=== PATIENT | female | born 1950 | race Caucasian/White ===

== ENCOUNTER 2022-01-23 16:57 | Inpatient (IN) ==
[2022-01-23] MEDS ORDERED: diphenhydrAMINE 50 MG/ML VIAL IV STA (17:15)
[2022-01-23] MEDS ORDERED: methylPREDNISolone 125 MG/2 ML VIAL IV STA (17:15)
[2022-01-23] MEDS ORDERED: diphenhydrAMINE 50 MG/ML VIAL ONE (17:16)
[2022-01-23] MEDS ORDERED: methylPREDNISolone 125 MG/2 ML VIAL ONE (17:17)
[2022-01-23 17:27] LABS: iSTAT Creatinine 0.7 mg/dl (0.6-1.3); iSTAT Hemoglobin 14.3 g/dl (12.0-16.0); iSTAT Ionized Calcium 1.12 mmol/l (1.12-1.32); iSTAT Potassium 3.8 mmol/L (3.3-5.0)
--- NOTE | 2022-01-23 17:29 | Emergency Department Note ---
History of Present Illness General Chief complaint: Stroke/CVA Symptoms Stated complaint: STROKE SYMPTOMS Time Seen by Provider: 01/23/22 17:08 History of Present Illness Provider complaint: Confusion weakness Onset (ago): minute(s) 45 71-year-old female presents emergency department with son for confusion and weakness. Son reports he received a call that the patient was acutely confused approximate 45 minutes prior to arrival to the emergency department. He states she was in a car and someone's are just sitting in a car confused having difficulty speaking. No trauma. Patient not on blood thinners. Son states that the patient does have a history of a brain tumor. Home Medications Medication Instructions Recorded Confirmed Type cholecalciferol (vitamin D3) 25 1,000 unit PO DAILY #90 cap 07/05/19 01/23/22 History mcg (1,000 unit) capsule metoprolol succinate 50 mg 50 mg PO DAILY tab 07/05/19 01/23/22 History tablet,extended release 24 hr alendronate 70 mg tablet 70 mg PO WK tab 12/13/20 01/23/22 History fluticasone furoate 100 1 inh INHALATION DAILY #60 ea 07/02/21 01/23/22 Rx mcg-vilanterol 25 mcg/dose inhalation powder (Breo Ellipta) losartan 25 mg tablet 25 mg PO DAILY 01/23/22 01/23/22 History lubiprostone 8 mcg capsule 8 mcg PO BID 01/23/22 01/23/22 History (Amitiza) Allergies Allergy/AdvReac Type Severity Reaction Status Date / Time iodine Allergy Intermediate HIVES Verified 07/02/21 10:54 Past Med/Surg History Medical History Abdominal pain Acute bronchitis with bronchospasm Cough variant asthma GERD (gastroesophageal reflux disease) Productive cough Seasonal allergies Surgical History History of colposcopy History of ERCP History of laparoscopy History of sinus surgery History of total abdominal hysterectomy Family History Father Brain cancer Mother Lung cancer Social History Smoking Status: Never smoker Feels Safe at Home: Yes Review of Systems A total of 10 systems reviewed and were otherwise negative Physical Exam Vital Signs Vital Signs - 24 hr 01/23/22 17:00 01/23/22 17:40 01/23/22 17:59 Pulse Rate 88 83 79 Pulse Rate from SpO2 Sensor 84 80 Respiratory Rate 20 22 21 Respiratory Effort / Characteristics Non-Labored Spontaneous Respiratory Depth Normal Blood Pressure 223/95 H 194/84 H Blood Pressure Mean 137 120 Pulse Oximetry 100 100 99 Oxygen Delivery Method Room Air Sepsis Recent Fever Within 48 Hours No Sepsis New/Unexplained Change in Mental Status N/A Sepsis Action Taken by Nursing No Action Required 01/23/22 18:00 01/23/22 18:10 Pulse Rate 76 Pulse Rate from SpO2 Sensor 76 Respiratory Rate 20 Respiratory Effort / Characteristics Respiratory Depth Blood Pressure 195/88 H Blood Pressure Mean 123 Pulse Oximetry 99 95 Oxygen Delivery Method Room Air Sepsis Recent Fever Within 48 Hours Sepsis New/Unexplained Change in Mental Status Sepsis Action Taken by Nursing Physical Exam HENT: Exam performed. -Head: Normocephalic and atraumatic. -Right Ear: External ear normal. No mastoid tenderness. -Left Ear: External ear normal. No mastoid tenderness. -Mouth/Throat: The oropharynx is clear and moist. No trismus in the jaw. No dental abscesses or uvula swelling. No oropharyngeal exudate or tonsillar ab scesses. EYES: Conjunctivae and EOM are normal. Pupils are equal, round, and reactive to light. Right eye exhibits no discharge. Left eye exhibits no discharge. No scleral icterus. NECK: Normal range of motion. Neck supple. No JVD present. No spinous process tenderness present. No carotid bruit present. No rigidity. No tracheal deviation and normal range of motion present. No Brudzinski's sign and no Kernig's sign noted. CV: Normal rate, regular rhythm, normal heart sounds and intact distal pulses. There is no peripheral edema. Palpable radial pulses bue. PULM/CHEST: Effort normal and breath sounds normal. No respiratory distress. No stridor. She has no wheezes. She has no rales. -Chest Wall: She exhibits no tenderness. ABD: The abdomen is soft. Bowel sounds are normal. She has no distension. No mass is present. There is no tenderness. There is no rebound, no guarding, no Henning's sign and no tenderness at McBurney's point. Rovsig negative MUSC/SKEL: Normal range of motion. There is no peripheral edema, tenderness or deformity. LYMPH: No cervical adenopathy. NEURO: NIHSS: 5 (1b:1, 7:2, 9:1, 10:1) Course Course 1708: The patient was evaluated in room B1. A complete history and physical exam was performed Cardiac monitoring: An order was placed for continuous cardiac monitoring. The monitor shows a rate of 90 with sinus rhythm Patient has a history of a brain tumor however the family says it is benign however they do not know what kind it is. Is unclear if the patient will truly be a stroke candidate for this given his history, however the patient's his family does not know what kind of tumor it is so a code stroke will be called. 1727: EMR reviewed. Patient has a history of hives to iodine. Solu-Medrol and Benadryl ordered for the patient prior to CT and CTA of the head and neck. Th ere is a scanned document from [facility] internal medicine. Patient has a history of meningioma and underwent a stereotactic cranial extradural navigation in 2018 at [facility] per the EMR. I did speak with [facility] telestroke Dr. Gooden stated that the patient having a meningioma and having this procedure done does not make her an absolute contraindication to TNKase. Patient at CT, Dr. Gooden states he will login to evaluate the patient. 1814: Vital signs stable. Patient evaluated by teleneurology Dr. Montaño. Still no read from radiology. Multiple calls were made to radiology by charge nurse. Dr. Gooden states he is unable to login and view the images. He has evaluated the patient and states that her symptoms are waxing and waning. He states that after further talking to the patient and the family the last known normal was 10 AM. He states with her history of meningioma he does think this is most likely due to seizure. He recommends no thrombolytics at this time and recommends Keppra 1 g IV piggyback as well as magnesium 2 g IV piggyback. He states that if the angios showing a large occlusion call him back and they can try to arrange for thrombectomy. Recommends patient be admitted to the hospital. 1829: CT reads are back.There is a hypodensity in the left temporal region and posterior watershed concerning for infarct. There is an enhancing mass in the left temporal fossa with dural tail compatible with meningioma. Discussed the case with Dr. Giacomo Renteria teleneurology again and he still recommends no TNKase no thrombectomy at this point. He states that it could be possible that the patient is suffering her symptoms from hypertensive encephalopathy recommends targeting a blood pressure of 180/90 maximum. Labetalol ordered for the patient. Aspirin ordered for the patient at Dr. Gooden suggestion. Administered Medications Magnesium Sulfate/Dextrose (Magnesium Sulfate / D5w) 1 gm in 100 mls @ 100 mls/hr IV Q1H SOFIA Stop: 01/23/22 20:11 Last Admin: 01/23/22 18:19 Dose: 100 mls/hr Documented by: [id number] Discontinued Medications Diphenhydramine HCl (Diphenhydramine 50 Mg/Ml Vial) 50 mg IV NOW STA Stop: 01/23/22 17:16 Last Admin: 01/23/22 17:19 Dose: 50 mg Documented by: [id number] Diphenhydramine HCl (Diphenhydramine 50 Mg/Ml Vial) Confirm Administered Dose 50 mg .ROUTE .STK-MED ONE Stop: 01/23/22 17:17 Last Admin: 01/23/22 17:37 Dose: Not Given Documented by: [id number] Ioversol (Optiray 320 125ml) 120 ml IV ONCE ONE Stop: 01/23/22 17:35 Last Admin: 01/23/22 17:34 Dose: 120 ml Documented by: [id number] Methylprednisolone (Methylprednisolone 125 Mg/2 Ml Vial) 125 mg IV NOW STA Stop: 01/23/22 17:16 Last Admin: 01/23/22 17:19 Dose: 125 mg Documented by: [id number] Methylprednisolone (Methylprednisolone 125 Mg/2 Ml Vial) Confirm Administered Dose 125 mg .ROUTE .STK-MED ONE Stop: 01/23/22 17:18 Last Admin: 01/23/22 17:37 Dose: Not Given Documented by: [id number] Critical Care Time Critical Care Time: Yes Total Critical Care Time: 55 I have personally spent greater than 55 minutes of critical care time in the direct management of this patient. This includes bedside care, interpretation of diagnostic studies, and testing, discussion with consultants, patient, and family members, and other required patient management activities. This 55 minutes is in excess of all separately billable procedures. Medical Decision Making Laboratory Data Result diagrams: 01/23/22 17:21 03/03/22 17:21 Lab Results 01/23/22 01/23/22 01/23/22 Range/Units 17:08 17:14 17:21 WBC (4.8-10.8) K/uL RBC (4.2-5.4) M/uL Hgb (12.0-16.0) g/dL POC Hgb 14.3 (12.0-16.0) g/dl Hct (37-47) % POC Hct 42 (37-47) % MCV (80-100) fL MCH (25-34) pg MCHC (32-36) g/dL RDW Std Deviation (36.4-46.3) fL RDW Coeff of Daniela (11.5-14.5) % Plt Count (130-400) K/uL MPV (7.4-10.4) fL Immature Gran % (Auto) % Neut % (Auto) % Lymph % (Auto) % [place] % (Auto) % Eos % (Auto) % Baso % (Auto) % Neut # (Auto) (1.4-6.5) K/uL Lymph # (Auto) (1.2-3.4) K/uL [place] # (Auto) (0.11-0.59) K/uL Eos # (Auto) (0-0.5) K/uL Baso # (Auto) (0-0.2) K/uL Immature Gran # (Auto) (0.00-0.02) K/uL PT (9.0-12.0) Seconds INR (0.9-1.1) APTT (21.0-31.0) Seconds PTT Ratio VBG pH (7.36-7.41) VBG pCO2 (38-50) mmHg VBG pO2 mmHg VBG HCO3 mmol/L VBG O2 Saturation % VBG Base Excess mEq/L Carboxyhemoglobin % THgb Barometric Pressure mm/Hg POC Sodium 140 (135-144) mmol/L Sodium (136-145) mmol/L POC Potassium 3.8 (3.3-5.0) mmol/L Potassium (3.5-5.1) mmol/L POC Chloride 102 (101-112) mmol/L Chloride (98-107) mmol/L Carbon Dioxide (21-32) mmol/L POC Total CO2 27 (24-31) mmol/L Anion Gap (3-11) POC Anion Gap 16.0 (16-25) mmol/L POC BUN 19 H (7-18) mg/dl BUN (6-23) mg/dl Creatinine (0.6-1.2) mg/dl POC Creatinine 0.7 (0.6-1.3) mg/dl Est Cr Clr Drug Dosing ml/min Est GFR ( Amer) ml/min Est GFR (Non-Af Amer) ml/min BUN/Creatinine Ratio (10-20) Glucose (70-99(Fasting)) mg/dl POC Glucose 127 H (70-99) mg/dl POC Glucose (other) 119 H (70-99) mg/dl Calcium (8.5-10.1) mg/dl POC Ioniz Calcium Rhiannon 1.12 (1.12-1.32) mmol/l Magnesium (1.7-2.4) mg/dl Total Bilirubin (0.2-1.0) mg/dl AST (13-39) U/L ALT (7-52) U/L Alkaline Phosphatase (34-104) U/L Troponin I (0-0.04) ng/ml Total Protein (6.0-8.3) gm/dl Albumin (3.4-5.0) gm/dl Globulin (2.5-4.0) gm/dl Albumin/Globulin Ratio (0.9-2) Blood Type O Negative Antibody Screen NEGATIVE 01/23/22 01/23/22 01/23/22 Range/Units 17:21 17:21 17:21 WBC 10.34 (4.8-10.8) K/uL RBC 4.64 (4.2-5.4) M/uL Hgb 14.7 (12.0-16.0) g/dL POC Hgb (12.0-16.0) g/dl Hct 42.1 (37-47) % POC Hct (37-47) % MCV 90.7 (80-100) fL MCH 31.7 (25-34) pg MCHC 34.9 (32-36) g/dL RDW Std Deviation 42.0 (36.4-46.3) fL RDW Coeff of Daniela 12.7 (11.5-14.5) % Plt Count 252 (130-400) K/uL MPV 9.3 (7.4-10.4) fL Immature Gran % (Auto) 0.2 % Neut % (Auto) 60.3 % Lymph % (Auto) 30.8 % [place] % (Auto) 6.2 % Eos % (Auto) 2.3 % Baso % (Auto) 0.2 % Neut # (Auto) 6.24 (1.4-6.5) K/uL Lymph # (Auto) 3.18 (1.2-3.4) K/uL [place] # (Auto) 0.64 H (0.11-0.59) K/uL Eos # (Auto) 0.24 (0-0.5) K/uL Baso # (Auto) 0.02 (0-0.2) K/uL Immature Gran # (Auto) 0.02 (0.00-0.02) K/uL PT 10.1 (9.0-12.0) Seconds INR 0.9 (0.9-1.1) APTT 25.1 (21.0-31.0) Seconds PTT Ratio 0.9 VBG pH (7.36-7.41) VBG pCO2 (38-50) mmHg VBG pO2 mmHg VBG HCO3 mmol/L VBG O2 Saturation % VBG Base Excess mEq/L Carboxyhemoglobin % THgb Barometric Pressure mm/Hg POC Sodium (135-144) mmol/L Sodium 137 (136-145) mmol/L POC Potassium (3.3-5.0) mmol/L Potassium 3.5 (3.5-5.1) mmol/L POC Chloride (101-112) mmol/L Chloride 103 (98-107) mmol/L Carbon Dioxide 26 (21-32) mmol/L POC Total CO2 (24-31) mmol/L Anion Gap 8 (3-11) POC Anion Gap (16-25) mmol/L POC BUN (7-18) mg/dl BUN 17 (6-23) mg/dl Creatinine 0.75 (0.6-1.2) mg/dl POC Creatinine (0.6-1.3) mg/dl Est Cr Clr Drug Dosing 69.1 ml/min Est GFR ( Amer) 91.7 ml/min Est GFR (Non-Af Amer) 79.1 ml/min BUN/Creatinine Ratio 22.7 H (10-20) Glucose 109 H (70-99(Fasting)) mg/dl POC Glucose (70-99) mg/dl POC Glucose (other) (70-99) mg/dl Calcium 9.4 (8.5-10.1) mg/dl POC Ioniz Calcium Rhiannon (1.12-1.32) mmol/l Magnesium 1.9 (1.7-2.4) mg/dl Total Bilirubin 0.6 (0.2-1.0) mg/dl AST 30 (13-39) U/L ALT 32 (7-52) U/L Alkaline Phosphatase 108 H (34-104) U/L Troponin I < 0.03 (0-0.04) ng/ml Total Protein 8.2 (6.0-8.3) gm/dl Albumin 4.5 (3.4-5.0) gm/dl Globulin 3.7 (2.5-4.0) gm/dl Albumin/Globulin Ratio 1.2 (0.9-2) Blood Type Antibody Screen 01/23/22 01/23/22 Range/Units 17:21 17:21 WBC (4.8-10.8) K/uL RBC (4.2-5.4) M/uL Hgb (12.0-16.0) g/dL POC Hgb (12.0-16.0) g/dl Hct (37-47) % POC Hct (37-47) % MCV (80-100) fL MCH (25-34) pg MCHC (32-36) g/dL RDW Std Deviation (36.4-46.3) fL RDW Coeff of Daniela (11.5-14.5) % Plt Count (130-400) K/uL MPV (7.4-10.4) fL Immature Gran % (Auto) % Neut % (Auto) % Lymph % (Auto) % [place] % (Auto) % Eos % (Auto) % Baso % (Auto) % Neut # (Auto) (1.4-6.5) K/uL Lymph # (Auto) (1.2-3.4) K/uL [place] # (Auto) (0.11-0.59) K/uL Eos # (Auto) (0-0.5) K/uL Baso # (Auto) (0-0.2) K/uL Immature Gran # (Auto) (0.00-0.02) K/uL PT (9.0-12.0) Seconds INR (0.9-1.1) APTT (21.0-31.0) Seconds PTT Ratio VBG pH 7.44 H (7.36-7.41) VBG pCO2 42 (38-50) mmHg VBG pO2 32 mmHg VBG HCO3 28 mmol/L VBG O2 Saturation 61.3 % VBG Base Excess 3.7 mEq/L Carboxyhemoglobin 0.0 % THgb Barometric Pressure 738.3 mm/Hg POC Sodium (135-144) mmol/L Sodium (136-145) mmol/L POC Potassium (3.3-5.0) mmol/L Potassium (3.5-5.1) mmol/L POC Chloride (101-112) mmol/L Chloride (98-107) mmol/L Carbon Dioxide (21-32) mmol/L POC Total CO2 (24-31) mmol/L Anion Gap (3-11) POC Anion Gap (16-25) mmol/L POC BUN (7-18) mg/dl BUN (6-23) mg/dl Creatinine (0.6-1.2) mg/dl POC Creatinine (0.6-1.3) mg/dl Est Cr Clr Drug Dosing ml/min Est GFR ( Amer) ml/min Est GFR (Non-Af Amer) ml/min BUN/Creatinine Ratio (10-20) Glucose (70-99(Fasting)) mg/dl POC Glucose (70-99) mg/dl POC Glucose (other) (70-99) mg/dl Calcium (8.5-10.1) mg/dl POC Ioniz Calcium Rhiannon (1.12-1.32) mmol/l Magnesium (1.7-2.4) mg/dl Total Bilirubin (0.2-1.0) mg/dl AST (13-39) U/L ALT (7-52) U/L Alkaline Phosphatase (34-104) U/L Troponin I (0-0.04) ng/ml Total Protein (6.0-8.3) gm/dl Albumin (3.4-5.0) gm/dl Globulin (2.5-4.0) gm/dl Albumin/Globulin Ratio (0.9-2) Blood Type Antibody Screen Imaging Data Radiologist's Impression: Chest X-Ray 01/23/22 17:12 XR chest 1V portable CLINICAL HISTORY: Stroke Like Symptoms TECHNIQUE: Single frontal radiograph of the chest was obtained. Comparison: None available at the time of this dictation. FINDINGS: No lines and tubes are seen. The cardiomediastinal silhouette is normal. The lungs are clear. No evidence of pleural effusion or pneumothorax. IMPRESSION: No acute chest disease. ACT 112: Negative or not required by law. Electronically signed by: Paulie Barnes M.D. 01/23/2022 5:[address] 01/23/22 17:12 CT angio neck with con, CT angio head w con, CT head/brain wo con CLINICAL HISTORY: Stroke Like Symptoms TECHNIQUE: Contiguous axial CT images of the head were acquired from the base of the skull to the vertex without intravenous contrast administration. CT angiography of the head and neck was performed following intravenous adm inistration of iodinated contrast. Coronal and sagittal MIPS were obtained from the axial data set and were submitted for review. Automated dose lowering techniques and/or adjustment according to patient size were utilized for this examination. All measurements were calculated based on NASCET criteria. Comparison: Comparison is made to CT head 07/21/2016 FINDINGS: CT head: There is an ill-defined hypodensity in the left sylvian sulcus. There also ill-defined hypodensities in the left posterior watershed region. Pe riventricular hypodensities are unchanged from 2016 and likely reflect age- related changes. Focal hypodensities are also seen in the right supraventricular white matter. Small thyroid nodules are seen which do not require follow-up by ACR criteria. CTA Neck: A 3 vessel aortic arch is shown. There is no significant atherosclerotic plaque in the aortic arch or the origins of the innominate, left common carotid, and left subclavian arteries. The common carotid, external carotid, cervical segments of the internal carotid arteries, and the cervical segments of the vertebral arteries are patent without hemodynamically significant stenosis. Tortuosity of the left internal carotid artery. The left vertebral artery is dominant. CTA Head: The anterior and posterior cerebral circulations are patent. No hemodynamically significant stenosis, aneurysm, dissection, or arteriovenous malformation is shown. 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 There is a 12 x 27 x 27 mm hyperdense mass in the right temporal fossa with dural tail noted IMPRESSION: 1. There is a hypodensity in the left temporal region and posterior watershed concerning for infarct. There is an enhancing mass in the left temporal fossa with dural tail compatible with meningioma. 2. No occlusion, hemodynamically significant stenosis, aneurysm, dissection, or arteriovenous malformation in the major intracranial arteries. 3. No occlusion, hemodynamically significant stenosis, or dissection in the major cervical arteries. Assessment of stenosis of the internal carotid arteries is based on NASCET criteria. ACT 112: Negative or not required by law. Electronically signed by: Paulie Barnes M.D. 01/23/2022 6:23 PM Head CTA 01/23/22 17:12 CT angio neck with con, CT angio head w con, CT head/brain wo con CLINICAL HISTORY: Stroke Like Symptoms TECHNIQUE: Contiguous axial CT images of the head were acquired from the base of the skull to the vertex without intravenous contrast administration. CT angiography of the head and neck was performed following intravenous administration of iodinated contrast. Coronal and sagittal MIPS were obtained from the axial data set and were submitted for review. Automated dose lowering techniques and/or adjustment according to patient size were utilized for this examination. All measurements were calculated based on NASCET criteria. Comparison: Comparison is made to CT head 07/21/2016 FINDINGS: CT head: There is an ill-defined hypodensity in the left sylvian sulcus. There also ill-defined hypodensities in the left posterior watershed region. Periventricular hypodensities are unchanged from 2016 and likely reflect age- related changes. Focal hypodensities are also seen in the right supraventricular white matter. Small thyroid nodules are seen which do not require follow-up by ACR criteria. CTA Neck: A 3 vessel aortic arch is shown. There is no significant atherosclerotic plaque in the aortic arch or the origins of the innominate, left common carotid, and left subclavian arteries. The common carotid, external carotid, cervical segments of the internal carotid arteries, and the cervical segments of the vertebral arteries are patent without hemodynamically signific ant stenosis. Tortuosity of the left internal carotid artery. The left vertebral artery is dominant. CTA Head: The anterior and posterior cerebral circulations are patent. No hemodynamically significant stenosis, aneurysm, dissection, or arteriovenous malformation is shown. 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 There is a 12 x 27 x 27 mm hyperdense mass in the right temporal fossa with dural tail noted IMPRESSION: 1. There is a hypodensity in the left temporal region and posterior watershed concerning for infarct. There is an enhancing mass in the left temporal fossa with dural tail compatible with meningioma. 2. No occlusion, hemodynamically significant stenosis, aneurysm, dissection, or arteriovenous malformation in the major intracranial arteries. 3. No occlusion, hemodynamically significant stenosis, or dissection in the major cervical arteries. Assessment of stenosis of the internal carotid arteries is based on NASCET criteria. ACT 112: Negative or not required by law. Electronically signed by: Paulie Barnes M.D. 01/23/2022 6:23 PM Neck CTA 01/23/22 17:12 CT angio neck with con, CT angio head w con, CT head/brain wo con CLINICAL HISTORY: Stroke Like Symptoms TECHNIQUE: Contiguous axial CT images of the head were acquired from the base of the skull to the vertex without intravenous contrast administration. CT angiography of the head and neck was performed following intravenous administration of iodinated contrast. Coronal and sagittal MIPS were obtained from the axial data set and were submitted for review. Automated dose lowering techniques and/or adjustment according to patient size were utilized for this examination. All measurements were calculated based on NASCET criteria. Comparison: Comparison is made to CT head 07/21/2016 FINDINGS: CT head: There is an ill-defined hypodensity in the left sylvian sulcus. There also ill-defined hypodensities in the left posterior watershed region. Periventricular hypodensities are unchanged from 2016 and likely reflect age- related changes. Focal hypodensities are also seen in the right supraventricular white matter. Small thyroid nodules are seen which do not require follow-up by ACR criteria. CTA Neck: A 3 vessel aortic arch is shown. There is no significant atherosclerotic plaque in the aortic arch or the origins of the innominate, left common carotid, and left subclavian arteries. The common carotid, external carotid, cervical segments of the internal carotid arteries, and the cervical segments of the vertebral arteries are patent without hemodynamically significant stenosis. Tortuosity of the left internal carotid artery. The left vertebral artery is dominant. CTA Head: The anterior and posterior cerebral circulations are patent. No hemodynamically significant stenosis, aneurysm, dissection, or arteriovenous mal formation is shown. 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 There is a 12 x 27 x 27 mm hyperdense mass in the right temporal fossa with dural tail noted IMPRESSION: 1. There is a hypodensity in the left temporal region and posterior watershed concerning for infarct. There is an enhancing mass in the left temporal fossa with dural tail compatible with meningioma. 2. No occlusion, hemodynamically significant stenosis, aneurysm, dissection, or arteriovenous malformation in the major intracranial arteries. 3. No occlusion, hemodynamically significant stenosis, or dissection in the major cervical arteries. Assessment of stenosis of the internal carotid arteries is based on NASCET criteria. ACT 112: Negative or not required by law. Electronically signed by: Paulie Barnes M.D. 01/23/2022 6:23 PM ECG Data Indication: + other (cva) Rate (beats per minute): 85 Rhythm: + normal sinus ECG Intervals/blocks: + Normal AL and + Normal QT-c ECG ST segments: + Normal ST segments ECG Findings: + LVH Additional Comments: QRS 76 MDM Narrative 1708: The patient was evaluated in room B1. A complete history and physical exam was performed Cardiac monitoring: An order was placed for continuous cardiac monitoring. The monitor shows a rate of 90 with sinus rhythm Patient has a history of a brain tumor however the family says it is benign however they do not know what kind it is. Is unclear if the patient will truly be a stroke candidate for this given his history, however the patient's his family does not know what kind of tumor it is so a code stroke will be called. 1727: EMR reviewed. Patient has a history of hives to iodine. Solu-Medrol and Benadryl ordered for the patient prior to CT and CTA of the head and neck. There is a scanned document from [facility] internal medicine. Patient has a history of meningioma and underwent a stereotactic cranial extradural navigation in 2018 at [facility] per the EMR. I did speak with [facility] telestroke Dr. Gooden stated that the patient having a meningioma and having this procedure done does not make her an absolute contraindication to TNKase. Patient at CT, Dr. Gooden states he will login to evaluate the patient. 1813: Vital signs stable. Patient evaluated by teleneurology Dr. Montaño. Still no read from radiology. Multiple calls were made to radiology by charge nurse. Dr. Gooden states he is unable to login and view the images. He has evaluated the patient and states that her symptoms are waxing and waning. He states that after further talking to the patient and the family the last known normal was 10 AM. He states with her history of meningioma he does think this is most likely due to seizure. He recommends no thrombolytics at this time and recommends Keppra 1 g IV piggyback as well as magnesium 2 g IV piggyback. He states that if the angios showing a large occlusion call him back and they can try to arrange for thrombectomy. Recommends patient be admitted to the hospital. 182: CT reads are back.There is a hypodensity in the left temporal region and posterior watershed concerning for infarct. There is an enhancing mass in the left temporal fossa with dural tail compatible with meningioma. Discussed the case with Dr. Giacomo Pinahey teleneurology again and he still recommends no TNKase no thrombectomy at this point. He states that it could be possible that the patient is suffering her symptoms from hypertensive encephalopathy recommends targeting a blood pressure of 180/90 maximum. Labetalol ordered for the patient. Aspirin ordered for the patient at Dr. Gooden suggestion. Impression & Plan Acute CVA (cerebrovascular accident), HTN (hypertension), Seizure Discharge Plan Visit Data Chief Complaint: Stroke/CVA Symptoms Stated Complaint: STROKE SYMPTOMS ED Provider: Asim Garay Discharge Problem: Acute CVA (cerebrovascular accident), HTN (hypertension), Seizure Patient Disposition: Admitted As Inpatient Forms Stand Alone Forms: [facility] Prescriptions Prescriptions: No Action cholecalciferol (vitamin D3) 1,000 unit capsule 1,000 unit PO DAILY Qty: 90 RF: 0 metoprolol succinate 50 mg tablet extended release 24 hr 50 mg PO DAILY RF: 0 alendronate 70 mg tablet 70 mg PO WK RF: 0 Breo Ellipta 100-25 mcg/dose blister with device 1 inh inhalation DAILY Qty: 60 RF: 5 losartan 25 mg tablet 25 mg PO DAILY RF: 0 lubiprostone [Amitiza] 8 mcg capsule 8 mcg PO BID RF: 0 Referrals Referrals: Omid De Oliveira, [Primary Care Provider] -
[2022-01-23 17:30] LABS: Basophils # (auto) 0.02 K/uL (0-0.2); Basophils % (auto) 0.2 %; Eosinophils # (auto) 0.24 K/uL (0-0.5); Eosinophils % (auto) 2.3 %; Hematocrit (blood only) 42.1 % (37-47); Hemoglobin 14.7 g/dL (12.0-16.0); Immature Granulocytes # (auto) 0.02 K/uL (0.00-0.02); Immature Granulocytes % (auto) 0.2 %; Lymphocytes # (auto) 3.18 K/uL (1.2-3.4); Lymphocytes % (auto) 30.8 %; Mean Corpuscular Hemoglobin 31.7 pg (25-34); Mean Corpuscular Hgb Conc 34.9 g/dL (32-36); Mean Corpuscular Volume 90.7 fL (80-100); Mean Platelet Volume 9.3 fL (7.4-10.4); Monocytes # (auto) 0.64 K/uL (0.11-0.59); Monocytes % (auto) 6.2 %; Neutrophils # (auto) 6.24 K/uL (1.4-6.5); Neutrophils % (auto) 60.3 %; Platelet Count 252 K/uL (130-400); RDW Coefficient of Variation 12.7 % (11.5-14.5); Red Blood Count 4.64 M/uL (4.2-5.4); White Blood Count 10.34 K/uL (4.8-10.8)
[2022-01-23 17:34] LABS: Base Excess VBG 3.7 mEq/L; Oxygen Saturation VBG 61.3 %; pH VBG 7.44 (7.36-7.41)
[2022-01-23] MEDS ORDERED: OPTIRAY 320 125ml IV ONE (17:34)
--- NOTE | 2022-01-23 17:41 | XRay Report ---
XR chest 1V portable CLINICAL HISTORY: Stroke Like Symptoms TECHNIQUE: Single frontal radiograph of the chest was obtained. Comparison: None available at the time of this dictation. FINDINGS: No lines and tubes are seen. The cardiomediastinal silhouette is normal. The lungs are clear. No evid ence of pleural effusion or pneumothorax. IMPRESSION: No acute chest disease. ACT 112: Negative or not required by law. Electronically signed by: Paulie Barnes M.D. 01/23/2022 5:39 PM
[2022-01-23 17:43] LABS: INR 0.9 (0.9-1.1); Partial Thromboplastin Ratio 0.9; Partial Thromboplastin Time 25.1 Seconds (21.0-31.0); Prothrombin Time 10.1 Seconds (9.0-12.0)
[2022-01-23 18:07] LABS: Troponin I < 0.03 ng/ml (0-0.04)
[2022-01-23 18:09] LABS: Alanine Aminotransferase 32 U/L (7-52); Albumin Globulin Ratio 1.2 (0.9-2); Albumin Level 4.5 gm/dl (3.4-5.0); Alkaline Phosphatase 108 U/L (34-104); Anion Gap 8 (3-11); Aspartate Aminotransferase 30 U/L (13-39); BUN Creatinine Ratio 22.7 (10-20); Bilirubin,Total 0.6 mg/dl (0.2-1.0); Blood Urea Nitrogen 17 mg/dl (6-23); Calcium 9.4 mg/dl (8.5-10.1); Carbon Dioxide 26 mmol/L (21-32); Chloride 103 mmol/L (98-107); Creatinine Clr Calc Pharmacy 69.1 ml/min; Est GFR (African American) 91.7 ml/min; Est GFR (Non-African American) 79.1 ml/min; Globulin 3.7 gm/dl (2.5-4.0); Glucose 109 mg/dl (70-99(Fasting)); Magnesium 1.9 mg/dl (1.7-2.4); Potassium 3.5 mmol/L (3.5-5.1); Sodium 137 mmol/L (136-145); Total Protein 8.2 gm/dl (6.0-8.3)
[2022-01-23] MEDS ORDERED: levETIRAcetam 1,000 MG in 0.9 % SODIUM CHLORIDE 100 ML IV STA (18:12)
[2022-01-23] MEDS: MAGNESIUM SULFATE / D5W 1 GM/100 ML BAG IV SCH ×2 (18:19→20:54)
--- NOTE | 2022-01-23 18:24 | CT Scan Report ---
CT angio neck with con, CT angio head w con, CT head/brain wo con CLINICAL HISTORY: Stroke Like Symptoms TECHNIQUE: Contiguous axial CT images of the head were acquired from the base of the skull to the sarina richard without intravenous contrast administration. CT angiography of the head and neck was performed f ollowing intravenous administration of iodinated contrast. Coronal and sagittal MIPS were obtained fr om the axial data set and were submitted for review. Automated dose lowering techniques and/or adjus tment according to patient size were utilized for this examination. All measurements were calculated based on NASCET criteria. Comparison: Comparison is made to CT head 07/21/2016 FINDINGS: CT head: There is an ill-defined hypodensity in the left sylvian sulcus. There also ill-defined hypod ensities in the left posterior watershed region. Periventricular hypodensities are unchanged from 201 6 and likely reflect age-related changes. Focal hypodensities are also seen in the right supraventric ular white matter. Small thyroid nodules are seen which do not require follow-up by ACR criteria. CTA Neck: A 3 vessel aortic arch is shown. There is no significant atherosclerotic plaque in the aor tic arch or the origins of the innominate, left common carotid, and left subclavian arteries. The c ommon carotid, external carotid, cervical segments of the internal carotid arteries, and the cervical segments of the vertebral arteries are patent without hemodynamically significant stenosis. Tortu[place] ty of the left internal carotid artery. The left vertebral artery is dominant. CTA Head: The anterior and posterior cerebral circulations are patent. No hemodynamically significan t stenosis, aneurysm, dissection, or arteriovenous malformation is shown. origin of the right P CA seen. There is a 12 x 27 x 27 mm hyperdense mass in the right temporal fossa with dural tail noted IMPRESSION: 1. There is a hypodensity in the left temporal region and posterior watershed concerning for infarct . There is an enhancing mass in the left temporal fossa with dural tail compatible with meningioma. 2. No occlusion, hemodynamically significant stenosis, aneurysm, dissection, or arteriovenous malfor mation in the major intracranial arteries. 3. No occlusion, hemodynamically significant stenosis, or dissection in the major cervical arteries. Assessment of stenosis of the internal carotid arteries is based on NASCET criteria. ACT 112: Negative or not required by law. Electronically signed by: Paulie Barnes M.D. 01/23/2022 6:23 PM
[2022-01-23] MEDS ORDERED: LABETALOL HCL IV 5 MG/ML 20ML IV STA (18:32)
[2022-01-23] MEDS ORDERED: ASPIRIN CHEW 324 MG PO STA (18:32)
[2022-01-23] MEDS ORDERED: SODIUM CHLORIDE 0.9% 1000ML 1,000 ML IV SCH (18:45)
[2022-01-23] MEDS ORDERED: LORazepam 2 MG/1 ML VIAL IV PRN (19:40)
--- NOTE | 2022-01-23 20:02 | History & Physical Report ---
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 Expressive aphasia Confusion Hypertensive emergency Admit to PCU Consult neurology Obtain MRI brain with and without contrast, to receive IV ativan prior to procedure CT concerning for L posterior watershed infarct Echocardiogram EEG Lipid panel, A1c PT/OT/ST Received 325 mg aspirin in ED Given aphasia remain n.p.o. until seen by speech Allow permissive hypertension r/o infectious cause with cultures, UA, obtain TSH, drug tox HTN pt on losartan and metoprolol as outpt given NPO status will hold for now, but resume in a.m. when cleared by speech Known L sphenoid wing Meningoma follows [facility] had repeat MRI on 09/16/21 was stable in size Asthma no exac continue breo DVT ppx: scds/teds, consider chemical ppx after further work up complete Dispo: PCU FULL CODE PCP: Alvino Pt was seen and examined in collaboration with Dr. Hidalgo, please see addendum History of Present Illness Chief Complaint: Confusion and difficulty speaking x3 days. Primary Care Provider: Omid De Oliveira, DO This is a 71-year-old female who has a significant past medical history of HTN, asthma, IBS, chronic sinusitis, left temporal meningioma followed by neurosurgery who presents to ED secondary to confusion and difficulty speaking x3 days. Patient's , father, and aunt are at bedside. Patient's history somewhat unreliable due to underlying confusion. She is unsure why she is here, but does she does know she is confused. Father at bedside notes that he noticed changes on Thursday. He felt she was more confused and, "babbling on and I did not understand what she was trying to tell me." Patient's saw her today at 4 PM and she was having difficulty speaking and confused. states she was talking to her aunt at 330 and appeared normal to her. A stroke alert was called on the patient. She otherwise had no other neurofocal deficits. She denies any extremity weakness, facial droop, slurred speech, drooling, foot drop, loss of bowel or bladder or seizure-like activity. She denies any recent illness. Today she did feel short of breath, but denies cough. She denies any recent fever, chills, sweats, lightheadedness, dizziness, syncope, chest pain, palpitations, nausea, vomiting, abdominal pain, change in her bowel or urinary habits. In ED patient was significantly hypertensive with systolic blood pressures in the 220s. She did receive IV labetalol 10 mg. Telemetry neurology was consulted and felt patient was not a TPA candidate due to possible concern for seizure versus stroke in area of meningioma as well as symptoms ongoing possibly for 3 days. There was concern for possible seizure so Tele neuro recommended 1g IV keprra. It is recommended she be admitted for further neurologic work-up. Allergies Allergy/AdvReac Type Severity Reaction Status Date / Time iodine Allergy Intermediate HIVES Verified 07/02/21 10:54 Home Medications Medication Instructions Recorded Confirmed Type cholecalciferol (vitamin D3) 25 1,000 unit PO DAILY #90 cap 07/05/19 01/23/22 History mcg (1,000 unit) capsule metoprolol succinate 50 mg 50 mg PO DAILY tab 07/05/19 01/23/22 History tablet,extended release 24 hr alendronate 70 mg tablet 70 mg PO WK tab 12/13/20 01/23/22 History fluticasone furoate 100 1 inh INHALATION DAILY #60 ea 07/02/21 01/23/22 Rx mcg-vilanterol 25 mcg/dose inhalation powder (Breo Ellipta) losartan 25 mg tablet 25 mg PO DAILY 01/23/22 01/23/22 History lubiprostone 8 mcg capsule 8 mcg PO BID 01/23/22 01/23/22 History (Amitiza) Past Med/Surg History Medical History Abdominal pain Acute bronchitis with bronchospasm Cough variant asthma GERD (gastroesophageal reflux disease) Productive cough Seasonal allergies Surgical History History of colposcopy History of ERCP History of laparoscopy History of sinus surgery History of total abdominal hysterectomy Family History Father Brain cancer Mother Lung cancer Social History (Updated 01/23/22 @ 19:46 by Yessenia Mccormick PA-C) Smoking Status: Never smoker Hx Alcohol Use: No Hx Substance Use: No Preferred Language: Kazakh Communication Ability: Impaired Communication Ability Comment: Prior to this admission no issues with communication Manager Crisis Required: No Beliefs That Will Affect Care: None marital status: Current Living Situation: Spouse Other Information That Helps Us Care for You: No Feels Safe at Home: Yes Review of Systems Review of Systems: All systems reviewed & are unremarkable except as noted in HPI & below Physical Exam Physical Exam: Constitutional: WD/WN, vitals as above, NAD, sitting up in bed, pleasant, conversing easily, alert to self and place, but not time Head: Normocephalic, Atraumatic Eyes: PERRL, conjunctivae normal, anicteric sclerae ENMT: external ear and nose normal, oropharynx normal Neck: trachea midline, no thyromegaly normal visual inspection Respiratory: normal respiratory effort, lungs clear to auscultation, no wheeze, rales, rhonchi. Normal insp/exp effort, no accessory muscle use Cardiovascular: RRR, no murmur, no edema Vessels: no JVD or carotid bruit Chest: normal inspection of chest Abdomen: normal bowel sounds, soft, nontender, no hepatosplenomegaly Musculoskeletal: no cyanosis or clubbing, extremities motor strength 5/5 Skin: no rashes, warm and dry normal turgor Neurologic: PERRL, EOMI, accommodation nl, no face palsy, no dysarthria, + expressive aphasia. CN's II-XI intact bilaterally and moves all extremities Psychiatric: A+Ox2, euthymic affect Lymphatic: no cervical or axillary lymphadenopathy : deferred Results & Data Results & Data ([facility]) Vital Signs (Past 12 Hours) Vital Signs Pulse Pulse Resp BP BP Pulse Ox 01/23/22 19:08 76 174/100 H 97 01/23/22 19:00 80 186/109 H 98 01/23/22 18:56 77 18 182/79 H 99 01/23/22 18:47 77 22 182/79 H 99 01/23/22 18:10 95 01/23/22 18:02 78 20 199/88 H 99 01/23/22 18:00 76 20 195/88 H 99 01/23/22 17:59 79 21 194/84 H 99 01/23/22 17:40 83 22 100 01/23/22 17:00 88 20 223/95 H 100 Diagnostic Findings Chest X-Ray 01/23/22 17:12 XR chest 1V portable CLINICAL HISTORY: Stroke Like Symptoms TECHNIQUE: Single frontal radiograph of the chest was obtained. Comparison: None available at the time of this dictation. FINDINGS: No lines and tubes are seen. The cardiomediastinal silhouette is normal. The lungs are clear. No evidence of pleural effusion or pneumothorax. IMPRESSION: No acute chest disease. ACT 112: Negative or not required by law. Electronically signed by: Paulie Barnes M.D. 01/23/2022 5:[address] 01/23/22 17:12 CT angio neck with con, CT angio head w con, CT head/brain wo con CLINICAL HISTORY: Stroke Like Symptoms TECHNIQUE: Contiguous axial CT images of the head were acquired from the base of the skull to the vertex without intravenous contrast administration. CT angiography of the head and neck was performed following intravenous administration of iodinated contrast. Coronal and sagittal MIPS were obtained from the axial data set and were submitted for review. Automated dose lowering techniques and/or adjustment according to patient size were utilized for this examination. All measurements were calculated based on NASCET criteria. Comparison: Comparison is made to CT head 07/21/2016 FINDINGS: CT head: There is an ill-defined hypodensity in the left sylvian sulcus. There also ill-defined hypodensities in the left posterior watershed region. Periventricular hypodensities are unchanged from 2016 and likely reflect age- related changes. Focal hypodensities are also seen in the right supraventricular white matter. Small thyroid nodules are seen which do not require follow-up by ACR criteria. CTA Neck: A 3 vessel aortic arch is shown. There is no significant atherosclerotic plaque in the aortic arch or the origins of the innominate, left common carotid, and left subclavian arteries. The common carotid, external carotid, cervical segments of the internal carotid arteries, and the cervical segments of the vertebral arteries are patent without hemodynamically significant stenosis. Tortuosity of the left internal carotid artery. The left vertebral artery is dominant. CTA Head: The anterior and posterior cerebral circulations are patent. No hemodynamically significant stenosis, aneurysm, dissection, or arteriovenous malformation is shown. origin of the right GAS STATION CASHIER seen. There is a 12 x 27 x 27 mm hyperdense mass in the right temporal fossa with dural tail noted IMPRESSION: 1. There is a hypodensity in the left temporal region and posterior watershed concerning for infarct. There is an enhancing mass in the left temporal fossa with dural tail compatible with meningioma. 2. No occlusion, hemodynamically significant stenosis, aneurysm, dissection, or arteriovenous malformation in the major intracranial arteries. 3. No occlusion, hemodynamically significant stenosis, or dissection in the major cervical arteries. Assessment of stenosis of the internal carotid arteries is based on NASCET criteria. ACT 112: Negative or not required by law. Electronically signed by: Paulie Barnes M.D. 01/23/2022 6:23 PM Head CTA 01/23/22 17:12 CT angio neck with con, CT angio head w con, CT head/brain wo con CLINICAL HISTORY: Stroke Like Symptoms TECHNIQUE: Contiguous axial CT images of the head were acquired from the base of the skull to the vertex without intravenous contrast administration. CT angiography of the head and neck was performed following intravenous administration of iodinated contrast. Coronal and sagittal MIPS were obtained f rom the axial data set and were submitted for review. Automated dose lowering techniques and/or adjustment according to patient size were utilized for this examination. All measurements were calculated based on NASCET criteria. Comparison: Comparison is made to CT head 07/21/2016 FINDINGS: CT head: There is an ill-defined hypodensity in the left sylvian sulcus. There also ill-defined hypodensities in the left posterior watershed region. Periventricular hypodensities are unchanged from 2016 and likely reflect age- related changes. Focal hypodensities are also seen in the right supraventricular white matter. Small thyroid nodules are seen which do not require follow-up by ACR criteria. CTA Neck: A 3 vessel aortic arch is shown. There is no significant atherosclerotic plaque in the aortic arch or the origins of the innominate, left common carotid, and left subclavian arteries. The common carotid, external carotid, cervical segments of the internal carotid arteries, and the cervical segments of the vertebral arteries are patent without hemodynamically significant stenosis. Tortuosity of the left internal carotid artery. The left vertebral artery is dominant. CTA Head: The anterior and posterior cerebral circulations are patent. No hemodynamically significant stenosis, aneurysm, dissection, or arteriovenous malformation is shown. origin of the right GAS STATION CASHIER seen. There is a 12 x 27 x 27 mm hyperdense mass in the right temporal fossa with dural tail noted IMPRESSION: 1. There is a hypodensity in the left temporal region and posterior watershed concerning for infarct. There is an enhancing mass in the left temporal fossa with dural tail compatible with meningioma. 2. No occlusion, hemodynamically significant stenosis, aneurysm, dissection, or arteriovenous malformation in the major intracranial arteries. 3. No occlusion, hemodynamically significant stenosis, or dissection in the major cervical arteries. Assessment of stenosis of the internal carotid arteries is based on NASCET criteria. ACT 112: Negative or not required by law. Electronically signed by: Paulie Barnes M.D. 01/23/2022 6:23 PM Neck CTA 01/23/22 17:12 CT angio neck with con, CT angio head w con, CT head/brain wo con CLINICAL HISTORY: Stroke Like Symptoms TECHNIQUE: Contiguous axial CT images of the head were acquired from the base of the skull to the vertex without intravenous contrast administration. CT angiography of the head and neck was performed following intravenous administration of iodinated contrast. Coronal and sagittal MIPS were obtained from the axial data set and were submitted for review. Automated dose lowering techniques and/or adjustment according to patient size were utilized for this examination. All measurements were calculated based on NASCET criteria. Comparison: Comparison is made to CT head 07/21/2016 FINDINGS: CT head: There is an ill-defined hypodensity in the left sylvian sulcus. There also ill-defined hypodensities in the left posterior watershed region. Periventricular hypodensities are unchanged from 2016 and likely reflect age- related changes. Focal hypodensities are also seen in the right supraventricular white matter. Small thyroid nodules are seen which do not require follow-up by ACR criteria. CTA Neck: A 3 vessel aortic arch is shown. There is no significant ather osclerotic plaque in the aortic arch or the origins of the innominate, left common carotid, and left subclavian arteries. The common carotid, external carotid, cervical segments of the internal carotid arteries, and the cervical segments of the vertebral arteries are patent without hemodynamically significant stenosis. Tortuosity of the left internal carotid artery. The left vertebral artery is dominant. CTA Head: The anterior and posterior cerebral circulations are patent. No hemodynamically significant stenosis, aneurysm, dissection, or arteriovenous malformation is shown. origin of the right GAS STATION CASHIER seen. There is a 12 x 27 x 27 mm hyperdense mass in the right temporal fossa with dural tail noted IMPRESSION: 1. There is a hypodensity in the left temporal region and posterior watershed concerning for infarct. There is an enhancing mass in the left temporal fossa with dural tail compatible with meningioma. 2. No occlusion, hemodynamically significant stenosis, aneurysm, dissection, or arteriovenous malformation in the major intracranial arteries. 3. No occlusion, hemodynamically significant stenosis, or dissection in the major cervical arteries. Assessment of stenosis of the internal carotid arteries is based on NASCET criteria. ACT 112: Negative or not required by law. Electronically signed by: Paulie Barnes M.D. 01/23/2022 6:23 PM Medications Administered Medication List Magnesium Sulfate/Dextrose (Magnesium Sulfate / D5w) 1 gm in 100 mls @ 100 mls/hr IV Q1H [facility] Stop: 01/23/22 20:11 Last Admin: 01/23/22 18:19 Dose: 100 mls/hr Documented by: [id number] Discontinued Medications Aspirin (Aspirin Chew 324 Mg) 324 mg PO NOW STA Stop: 01/23/22 18:33 Last Admin: 01/23/22 18:47 Dose: 324 mg Documented by: [id number] Diphenhydramine HCl (Diphenhydramine 50 Mg/Ml Vial) 50 mg IV NOW STA Stop: 01/23/22 17:16 Last Admin: 01/23/22 17:19 Dose: 50 mg Documented by: [id number] Diphenhydramine HCl (Diphenhydramine 50 Mg/Ml Vial) Confirm Administered Dose 50 mg .ROUTE .STK-MED ONE Stop: 01/23/22 17:17 Last Admin: 01/23/22 17:37 Dose: Not Given Documented by: [id number] Levetiracetam 1,000 mg/ Sodium (Chloride) 110 mls @ 440 mls/hr IV NOW STA Stop: 01/23/22 18:26 Last Infusion: 01/23/22 19:20 Dose: 0 mls/hr Documented by: [id number] Admin: 01/23/22 18:53 Dose: 440 mls/hr Documented by: [id number] Sodium Chloride (Nss 1000ml) 1,000 mls @ 80 mls/hr IV .[id number] Stop: 02/22/22 18:44 Last Admin: 01/23/22 19:25 Dose: 80 mls/hr Documented by: [id number] Ioversol (Optiray 320 125ml) 120 ml IV ONCE ONE Stop: 01/23/22 17:35 Last Admin: 01/23/22 17:34 Dose: 120 ml Documented by: [id number] Labetalol HCl (Labetalol Hcl Iv 5 Mg/Ml 20ml) 20 mg IV NOW STA Stop: 01/23/22 18:33 Last Admin: 01/23/22 18:47 Dose: 10 mg Documented by: [id number] Cosigned by: [id number] Methylprednisolone (Methylprednisolone 125 Mg/2 Ml Vial) 125 mg IV NOW STA Stop: 01/23/22 17:16 Last Admin: 01/23/22 17:19 Dose: 125 mg Documented by: [id number] Methylprednisolone (Methylprednisolone 125 Mg/2 Ml Vial) Confirm Administered Dose 125 mg .ROUTE .STK-MED ONE Stop: 01/23/22 17:18 Last Admin: 01/23/22 17:37 Dose: Not Given Documented by: [id number] ECG Rate (beats per minute): 85 Rhythm: normal sinus COVID-19 Results Results COVID-19 Adm Lab Results: RBC 4.52 M/uL (4.2-5.4) 01/24/22 WBC 12.95 K/uL (4.8-10.8) H 01/24/22 Hgb 14.3 g/dL (12.0-16.0) 01/24/22 Hct 41.0 % (37-47) 01/24/22 Plt Count 253 K/uL (130-400) 01/24/22 Neutrophils (%) (Auto) 90.6 % 01/24/22 Lymphocytes (%) (Auto) 8.3 % 01/24/22 Monocytes # (Auto) 0.10 K/uL (0.11-0.59) L 01/24/22 Eosinophils # (Auto) 0.00 K/uL (0-0.5) 01/24/22 Immature Granulocyte % (Auto) 0.3 % 01/24/22 Neutrophils # (Auto) 11.73 K/uL (1.4-6.5) H 01/24/22 Lymphocytes # (Auto) 1.08 K/uL (1.2-3.4) L 01/24/22 Monocytes # (Auto) 0.10 K/uL (0.11-0.59) L 01/24/22 Eosinophils # (Auto) 0.00 K/uL (0-0.5) 01/24/22 Basophils # (Auto) 0.00 K/uL (0-0.2) 01/24/22 Immature Granulocyte # (Auto) 0.04 K/uL (0.00-0.02) H 01/24/22 Na 138 mmol/L (136-145) 01/24/22 K 3.9 mmol/L (3.5-5.1) 01/24/22 Cl 105 mmol/L (98-107) 01/24/22 CO2 24 mmol/L (21-32) 01/24/22 Anion Gap 9 (3-11) 01/24/22 BUN 15 mg/dl (6-23) 01/24/22 Creatinine 0.68 mg/dl (0.6-1.2) 01/24/22 BUN/Creatinine Ratio 22.1 (10-20) H 01/24/22 Glucose Level 137 mg/dl (70-99(Fasting)) H 01/24/22 Ca 8.7 mg/dl (8.5-10.1) 01/24/22 Total Bilirubin 0.6 mg/dl (0.2-1.0) 01/23/22 AST/SGOT 30 U/L (13-39) 01/23/22 ALT/SGPT 32 U/L (7-52) 01/23/22 Alkaline Phosphatase 108 U/L (34-104) H 01/23/22 Total Protein 8.2 gm/dl (6.0-8.3) 01/23/22 Albumin 4.5 gm/dl (3.4-5.0) 01/23/22 Globulin 3.7 gm/dl (2.5-4.0) 01/23/22 Albumin/Globulin Ratio 1.2 (0.9-2) 01/23/22 Troponin I < 0.03 ng/ml (0-0.04) 01/23/22 PTT 25.1 Seconds (21.0-31.0) 01/23/22 INR 0.9 (0.9-1.1) 01/23/22 Triglycerides Level 61 mg/dl (0-150) 01/24/22 SARS-CoV-2, RNA, NAAT NEGATIVE (NEGATIVE) 01/23/22 Chest X-Ray 01/23/22 Code Status & VTE Plan Code Status FULL CODE VTE Prophylaxis Plan VTE Prophylaxis will be ordered: Yes Supervising Physician Co-Signing Physician Notes Care coordinated with Yessenia Mccormick PA-C. Agree with above note. Patient seen and examined. Please refer to her notes for full details. Vital signs reviewed. Physical exam: General exam: Having difficulty speaking. Not in acute distress. CVS: S1 and S2 heard, regular rate and rhythm, no murmurs. RS: Clear to auscultation, no wheezing or crackles. ABD: Soft, bowel sounds present, nontender, no distention. CONTACT LENS MANUFACTURER: alert and awake obeys simple commands expressive aphasia present power 4/5 in all extremities sensations intact no pronator drift co ordination of movements normal finger nose test normal position sense intact . EXT: No edema, no erythema. Labs: Reviewed. Assessment and plan: 71 Y F presents with expressive aphasia since 4pm yesterday. Father seems patient having symptoms of confusion and speech issues since Thursday. Tele stroke was consulted. Imaging studies show: There is a hypodensity in the left temporal region and posterior watershed concerning for infarct. There is an enhancing mass in the left temporal fossa with dural tail compatible with meningioma. Received aspirin in ER. To allow permissive HTN npo until seen by speech iv fluids will follow mri head echo follow lipid profile Monitor in tele Neurology consult HTN to hold metoprolol and losartan for permissive htn for now Other diagnosis and plan of care as per Yessenia Mccormick PA-C . Yonny shaver MD.
[2022-01-23 21:12] LABS: Appearance Urine Clear (Clear); Bacteria Urine Automated Negative (Negative); Bilirubin Urine Negative (Negative); Blood Urine Trace (Negative); Cast Urine Automated 0 /lpf (0-5); Color Urine Yellow; Epithelial Cell Urine Auto 0-5 /lpf (0-5); Glucose Urine UA Negative (Negative); Ketones Urine Negative (Negative); Leukocyte Esterase Urine Negative (Negative); Nitrite Urine Negative (Negative); Protein Urine Negative (Negative); RBC Urine Automated 0-4 /hpf (0-4); Specific Gravity Urine 1.023 (1.000-1.030); Urobilinogen Urine Negative (Negative); WBC Urine Automated 0 /hpf (0-5)
[2022-01-23] MEDS ORDERED: GADOBUTROL 65ML VIAL IV ONE (22:17)
[2022-01-23 22:23] LABS: Amphetamines+Metham, Urine Neg (Neg); Barbiturates, Urine Neg (Neg); Benzodiazepine, Urine Neg (Neg); Cocaine, Urine Neg (Neg); MDMA (Ecstacy), Urine Neg (Neg); Methadone, Urine Neg (Neg); Opiate, Urine Neg (Neg); Phencyclidine, Urine Neg (Neg)
[2022-01-23] MEDS ORDERED: LABETALOL HCL IV 5 MG/ML 20ML IV PRN (23:07)
[2022-01-23] MEDS ORDERED: PHARMACIST DISCHARGE MED REC CONSULT PRN (23:07)
[2022-01-23] MEDS ORDERED: INFLUENZA VACCINE HIGH DOSE PF 65+ 0.7 ML SYR IM ONE (23:23)
[2022-01-23] MEDS ORDERED: PNEUMOCOCCAL POLYSACCHARIDES 25 MCG/0.5 ML VIAL/SYR IM ONE (23:23)
[2022-01-24] MEDS ORDERED: SODIUM CHLORIDE 0.9% 500 ML IV SCH (04:15)
[2022-01-24] MEDS: SODIUM CHLORIDE 0.9% 1000ML 1,000 ML IV SCH ×2 (06:44→15:45)
[2022-01-24 06:53] LABS: Hemoglobin 14.3 g/dL (12.0-16.0); Immature Granulocytes # (auto) 0.04 K/uL (0.00-0.02); Immature Granulocytes % (auto) 0.3 %; Lymphocytes # (auto) 1.08 K/uL (1.2-3.4); Lymphocytes % (auto) 8.3 %; Mean Corpuscular Hemoglobin 31.6 pg (25-34); Mean Corpuscular Hgb Conc 34.9 g/dL (32-36); Mean Corpuscular Volume 90.7 fL (80-100); Mean Platelet Volume 9.6 fL (7.4-10.4); Monocytes % (auto) 0.8 %; Neutrophils # (auto) 11.73 K/uL (1.4-6.5); Neutrophils % (auto) 90.6 %; Platelet Count 253 K/uL (130-400); RDW Coefficient of Variation 12.5 % (11.5-14.5); RDW Standard Deviation 41.3 fL (36.4-46.3); Red Blood Count 4.52 M/uL (4.2-5.4); White Blood Count 12.95 K/uL (4.8-10.8)
[2022-01-24 07:12] LABS: Estimated Average Glucose 100 mg/dl; Hemoglobin A1C 5.1 % (4.5-5.6)
[2022-01-24 07:16] LABS: BUN Creatinine Ratio 22.1 (10-20); Calcium 8.7 mg/dl (8.5-10.1); Chol HDL Ratio 3.3 (0-5); Creatinine Clr Calc Pharmacy 74.8 ml/min; Est GFR (African American) 100.6 ml/min; Est GFR (Non-African American) 86.8 ml/min; Potassium 3.9 mmol/L (3.5-5.1)
--- NOTE | 2022-01-24 08:21 | Magnetic Resonance Report ---
Brain MRI WITH AND WITHOUT CONTRAST HISTORY: Confusion. Slurred speech. stroke vs seizure TECHNIQUE: Multiplanar multisequence MRI of the brain was performed both before and after the intrave nous administration of contrast. COMPARISON STUDY: Head and neck CTA 01/23/2022. FINDINGS: Multifocal areas of restricted diffusion seen within the left temporal lobe and left pariet al lobe consistent with an acute MCA territory infarct. The midline structures are intact. Areas of c ytotoxic edema involving the left MCA territory infarct. No significant mass effect or midline shift. Patchy peripheral reticular white matter T2 hyperintensity is nonspecific but likely represents micr ovascular ischemic change. The major vascular flow-voids at the skull base are well-maintained. The v entricles and sulci demonstrate mild age-related involutional changes. Prior bilateral lens replaceme nt. Paranasal sinuses and mastoid air cells are clear. Suboptimal evaluation of the postcontrast sequ ences due to the motion artifact. Redemonstration of the 2.7 x 1.3 cm enhancing extra-axial lesion wi thin the left middle cranial fossa. This demonstrates a dural tail and is therefore consistent with a meningioma. IMPRESSION: 1. Multifocal areas restricted diffusion seen within the left temporal and parietal lobes consistent with an acute MCA territory infarct. 2. A 2.7 x 1.3 cm enhancing extra-axial mass within the left middle cranial fossa consistent with a m eningioma. ACT 112: Negative or not required by law. Electronically signed by: Archie Hernandez M.D. 01/24/2022 8:19 AM
--- NOTE | 2022-01-24 11:14 | Electroencephalogram ---
EEG Procedure Note Date of Service January 24, 2022 Start / End Times Start Time: 832 End Time: [address] Laws History Language disturbance acute onset question seizure versus stroke. Known left temporal meningioma Home Medication List Medication Instructions Recorded Confirmed Type cholecalciferol (vitamin D3) 25 1,000 unit PO DAILY #90 cap 07/05/19 01/23/22 History mcg (1,000 unit) capsule metoprolol succinate 50 mg 50 mg PO DAILY tab 07/05/19 01/23/22 History tablet,extended release 24 hr alendronate 70 mg tablet 70 mg PO WK tab 12/13/20 01/23/22 History fluticasone furoate 100 1 inh INHALATION DAILY #60 ea 07/02/21 01/23/22 Rx mcg-vilanterol 25 mcg/dose inhalation powder (Breo Ellipta) losartan 25 mg tablet 25 mg PO DAILY 01/23/22 01/23/22 History lubiprostone 8 mcg capsule 8 mcg PO BID 01/23/22 01/23/22 History (Amitiza) Inpatient Medication List Sodium Chloride (Nss 1000ml) 1,000 mls @ 100 mls/hr IV .Q10H SOFIA Stop: 02/23/22 04:14 Last Admin: 01/24/22 06:44 Dose: 100 mls/hr Documented by: [id number] Discontinued Medications Aspirin (Aspirin Chew 324 Mg) 324 mg PO NOW STA Stop: 01/23/22 18:33 Last Admin: 01/23/22 18:47 Dose: 324 mg Documented by: [id number] Diphenhydramine HCl (Diphenhydramine 50 Mg/Ml Vial) 50 mg IV NOW STA Stop: 01/23/22 17:16 Last Admin: 01/23/22 17:19 Dose: 50 mg Documented by: [id number] Diphenhydramine HCl (Diphenhydramine 50 Mg/Ml Vial) Confirm Administered Dose 50 mg .ROUTE .STK-MED ONE Stop: 01/23/22 17:17 Last Admin: 01/23/22 17:37 Dose: Not Given Documented by: [id number] Gadobutrol (Gadobutrol 65ml Vial) 8 ml IV ONCE ONE Stop: 01/23/22 22:18 Last Admin: 01/23/22 22:18 Dose: 8 ml Documented by: [id number] Levetiracetam 1,000 mg/ Sodium (Chloride) 110 mls @ 440 mls/hr IV NOW STA Stop: 01/23/22 18:26 Last Infusion: 01/23/22 19:20 Dose: 0 mls/hr Documented by: [id number] Admin: 01/23/22 18:53 Dose: 440 mls/hr Documented by: [id number] Magnesium Sulfate/Dextrose (Magnesium Sulfate / D5w) 1 gm in 100 mls @ 100 mls/hr IV Q1H SOFIA Stop: 01/23/22 20:11 Last Infusion: 01/24/22 01:23 Dose: 0 mls/hr Documented by: [id number] Admin: 01/23/22 20:54 Dose: 100 mls/hr Documented by: [id number] Infusion: 01/23/22 19:19 Dose: 100 mls/hr Documented by: [id number] Admin: 01/23/22 18:19 Dose: 100 mls/hr Documented by: [id number] Sodium Chloride (Nss 1000ml) 1,000 mls @ 80 mls/hr IV .[id number] SOFIA Stop: 02/22/22 18:44 Last Infusion: 01/23/22 23:37 Dose: 0 mls/hr Documented by: [id number] Admin: 01/23/22 19:25 Dose: 80 mls/hr Documented by: [id number] Sodium Chloride (Nss) 500 mls @ 500 mls/hr IV .Q1H SOFIA Stop: 01/24/22 05:14 Last Infusion: 01/24/22 06:45 Dose: 0 mls/hr Documented by: [id number] Admin: 01/24/22 05:25 Dose: 500 mls/hr Documented by: [id number] Ioversol (Optiray 320 125ml) 120 ml IV ONCE ONE Stop: 01/23/22 17:35 Last Admin: 01/23/22 17:34 Dose: 120 ml Documented by: [id number] Labetalol HCl (Labetalol Hcl Iv 5 Mg/Ml 20ml) 20 mg IV NOW STA Stop: 01/23/22 18:33 Last Admin: 01/23/22 18:47 Dose: 10 mg Documented by: [id number] Cosigned by: [id number] Lorazepam (Lorazepam 2 Mg/1 Ml Vial) 1 mg IV ONE PRN PRN Reason: PRIOR TO MRI Last Admin: 01/23/22 21:07 Dose: 1 mg Documented by: [id number] Methylprednisolone (Methylprednisolone 125 Mg/2 Ml Vial) 125 mg IV NOW STA Stop: 01/23/22 17:16 Last Admin: 01/23/22 17:19 Dose: 125 mg Documented by: [id number] Methylprednisolone (Methylprednisolone 125 Mg/2 Ml Vial) Confirm Administered Dose 125 mg .ROUTE .STK-MED ONE Stop: 01/23/22 17:18 Last Admin: 01/23/22 17:37 Dose: Not Given Documented by: [id number] Description This is a 21 electrode EEG with a single channel dedicated to limited EKG. The electrodes were placed in accordance with the International 10-20 system. This EEG was done at the bedside and is of good technical only. Simultaneous video analysis patient movement behavior was obtained. Photic stimulation was performed. During wakefulness there is evidence for normal background rhythm in the alpha range of up to 9 to 10 Hz maximal frequency and 30 V maximum amplitude. This is maximum posterior head regions bilaterally symmetrical. Polymorphic mid to upper frequency modest voltage theta activity seen symmetrically over the central regions. Beta activity seen bifrontally. Photic stimulation looks to modify response without any pathologic responses No potentially epileptogenic activity is noted. Drowsiness light sleep not obt ained Interpretation Is a normal EEG during wakefulness Clinical Correlation This is a normal EEG failing reveal evidence for focal generalized encephalopathy and fails reveal evidence for potential epileptogenic activity. Sean Proctor MD
[2022-01-24] MEDS: FLUTICASONE/VILANTEROL 100/25MCG 14 PUFFS/INHALER INH SCH (11:15)
--- NOTE | 2022-01-24 14:17 | Communication Note ---
Date of Service: January 24, 2022 Irlanda Sears is 71 years old is right-handed and presented to the hospital yesterday with a several day history of confused speech probable onset as early as Thursday according to what I can glean from reviewing the admission history and physical when she was noted to have some unusual speech patterns by her father. It appears that this may have been recurrent or perhaps progressive. The history is a little vague and 1 wonders based on subsequent imaging studies if she did have a series of events All this occurs in the setting of hypertension, gastroesophageal reflux, cough variant asthma, chronic sinusitis, history of cholecystectomy, history of cataract surgery and a known extra-axial sphenoid wing meningioma followed by neurosurgery but never treated with anticonvulsants When she presented a stroke alert was called but she was not felt to be a candidate for TPA and the possibility of a seizure was mentioned primarily because of the meningioma in the region of the left hemisphere Initial studies including a CTA of the Exter cranial and intracranial vessels was normal but a CT scan showed several areas suspicious for infarctions thro ughout the left hemisphere this is subsequently been confirmed by MRI which shows multiple areas of what I feel are embolic events involving the temporal and parietal lobes on the left An echocardiogram has shown no potential source of embolization and she to date remains in sinus rhythm but obviously in the setting work-up for paroxysmal atrial fibrillation is going to be in order Her home medications include alendronate cholecalciferol fluticasone losartan Amitiza and metoprolol but did not include aspirin and at this point she needs to be on a combination of aspirin and Plavix for 21 days and then switch to a single agent She claims allergies to iodine which gives her hives No review of systems can be obtained as no family members are present and the patient is quite aphasic answering most questions with the name Fatimah or a series of neologisms. She is COVID-19 negative Exam reveals a blood pressure 146/79 pulse is 85 and regular respirations are 20 she is afebrile O2 saturations 98% on room air. She is easily arousable is alert awake but her speech is very confused and again most questions are answered with the word body or neologisms. She can follow few commands such as raising her right hand but then breaks down quickly when when asked her name fingers and right and left becomes a difficult choice. She cannot name common objects to hold my hand. She cannot read a sentence that is presented to her. She will not repeat. She occasionally points to the correct objects are on the figure board this by her bedside but this appears to be more random than a direct result of the request and she names again most of them "Fatimah" There may be a subtle right upper motor neuron facial paresis eye movements are normal visual bennett cannot be adequately evaluated but she responds to threat equally in all bennett of gaze and she responds to facial sensation equally speech is perhaps slightly dysarthric. I do not see any drift pronation sign tremor tics or choreiform activity reflexes are all present and equal toes are downgoing no Anuj signs are seen I really cannot detect any weakness on one side or the other but her level of cooperation and strength testing is not the best and sensory examination is unreliable again because of the aphasia Laboratory studies do not show anything of significance and imaging studies are as outlined above and more detail can be obtained by reviewing the actual reports. 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 We do not have any clear cardiac source at least in terms of valvular disease or cardiomyopathy or an intracardiac lesion. We do not have anything significant in the extracranial vasculature or intracranial vasculature could have been a source of artery to artery embolic event. We do not have an adequate assessment of the thoracic aorta other than the CT angiogram no mention is made in the report of significant atheromatous plaque and I do not think the yield of a transesophageal echo is going to be worth the risk of the procedure She will need outpatient monitoring for paroxysmal atrial fibrillation if she does not develop atrial fibrillation will be observed here. Clearly she is going to need speech therapy and needs to be evaluated by physical therapy occupational therapy etc. I suspect she will be a candidate for outpatient speech therapy and not require inpatient rehabilitation stay but this is a decision will have to be reached by the therapist team From a neurologic point of view then we are going to recommend dual antiplatelet therapy with standard doses of aspirin i.e. 81 mg and Plavix 75 mg daily for 21 days, we will arrange for an outpatient visit to our office, we will arrange for a Zio patch to be placed on an outpatient basis and at this point unless things would change clinically I am going to sign off the case but will be available for the next 4 days should anything develop or change and I will be monitoring her chart by computer as well Sean Proctor MD The above note was generated utilizing voice recognition technology and may have some spelling errors punctuation errors pronoun usage errors and syntax errors
[2022-01-24] MEDS: ASPIRIN 81 MG ECTAB PO SCH (15:45)
[2022-01-24] MEDS: CLOPIDOGREL BISULFATE 75 MG TAB PO SCH (15:45)
--- NOTE | 2022-01-24 16:02 | Hospitalist Progress Note ---
Date of Service January 24, 2022 Assessment & Plan (1) Acute CVA (cerebrovascular accident): Plan: ACUTE CVA LEFT TEMPORAL AND PARIETAL REGION (+) expressive aphasia Bran MRI: 1. Multifocal areas restricted diffusion seen within the left temporal and parietal lobes consistent with an acute MCA territory infarct. 2. A 2.7 x 1.3 cm enhancing extra-axial mass within the left middle cranial fossa consistent with a meningioma. Head and Neck CT: no stenosis noted Echo: no interatrial shunt EEG: unrevealing still has significant expressive aphasia Neuro consulted ASA + Plavix for 21 days Lipitor 40mg daily PT, OT, Speech Therapy will need ZIo patch monitoring as outpatient HYPERTENSION permissive hypertension hold Losartan, Metoprolol Known L sphenoid wing Meningoma follows [facility] had repeat MRI on 09/16/21 was stable in size Asthma no exac continue breo DVT ppx:scds/teds for now Dispo: pending PT, OT in progress plan of care discussed with patient and her daughter Radha in detail and at length all questions answered they are understanding, agreeable, comfortable with the plan of care Admission and Anticipated Discharge Date Admission Date: January 23, 2022 Subjective ff up for acute CVA, etc seen resting in bed, alert, awake not in distress patient still has expressive aphasia ROS limited due to expressive aphasia no headache, chest pain patient answering to questions- speech is clear but content is mostly random words no other issues per associate biological sales of Systems Review of Systems: Other limited due to expressive aphasia Physical Exam Physical Exam: General- oriented x 1-2, not in distress, speaks in sentences with no effort or accessory muscle use Head- atraumatic Eyes- PERRL, EOMI, anicteric ENT- oropharynx clear Neck- supple, no JVD, no adenopathy, no thyromegaly; carotids +2/2, no bruits appreciated Lungs- clear to auscultation bilaterally, no rales/wheezes Heart- normal rate, regular rhythm; no murmur, no gallop, no rub appreciated Abdomen- normal bowel sounds, nondistended, soft, nontender, no masses or hepatosplenomegaly Extremities- no pretibial edema, no calf tenderness; peripheral pulses intact Neuro- alert, oriented x 1; CN 2-12 grossly intact; motor 5/5 bilaterally;sensation 100% on all extremities; no other gross focal neurologic deficits (+) expressive aphasia (+) some receptive aphasia Skin- warm & dry Results & Data Results & Data ([facility]) Vital Signs (Past 12 Hours) Vital Signs Temp Pulse Pulse Resp BP Pulse Ox 01/24/22 11:46 36.4 C L 85 20 146/79 H 98 01/24/22 08:00 87 01/24/22 07:55 36.7 C 81 20 139/68 95 all noted and reviewed including below
--- NOTE | 2022-01-24 18:51 | Electrocardiogram Report ---
Test Reason : Blood Pressure : / mmHG Vent. Rate : 085 BPM Atrial Rate : 085 BPM P-R Int : 160 ms QRS Dur : 076 ms QT Int : 374 ms P-R-T Axes : 034 -14 044 degrees QTc Int : 445 ms Normal sinus rhythm Moderate voltage criteria for LVH, may be normal variant Borderline ECG When compared with ECG of 12-OCT-2007 14:48, No significant change was found Confirmed by Abraham Garsia ([id number]) on 01/24/2022 6:51:31 PM Referred By: REFERRED SELF Confirmed By:Harlan Garsia
--- NOTE | 2022-01-24 18:58 | Electrocardiogram Report ---
Test Reason : Blood Pressure : / mmHG Vent. Rate : 086 BPM Atrial Rate : 086 BPM P-R Int : 184 ms QRS Dur : 082 ms QT Int : 404 ms P-R-T Axes : 052 -12 021 degrees QTc Int : 483 ms Normal sinus rhythm Minimal voltage criteria for LVH, may be normal variant Borderline ECG When compared with ECG of 23-JAN-2022 17:08, (unconfirmed) Nonspecific T wave abnormality no longer evident in Lateral leads Confirmed by Abraham Garsia ([id number]) on 01/24/2022 6:57:51 PM Referred By: REFERRED SELF Confirmed By:Harlan Garsia
[2022-01-24] MEDS: ATORVASTATIN 40 MG TAB PO SCH (20:32)
[2022-01-25] MEDS: SODIUM CHLORIDE 0.9% 1000ML 1,000 ML IV SCH ×2 (03:48→14:20)
[2022-01-25 05:45] LABS: Basophils # (auto) 0.02 K/uL (0-0.2); Basophils % (auto) 0.2 %; Eosinophils # (auto) 0.08 K/uL (0-0.5); Eosinophils % (auto) 0.7 %; Hematocrit (blood only) 36.7 % (37-47); Hemoglobin 12.5 g/dL (12.0-16.0); Immature Granulocytes # (auto) 0.02 K/uL (0.00-0.02); Immature Granulocytes % (auto) 0.2 %; Lymphocytes # (auto) 2.99 K/uL (1.2-3.4); Lymphocytes % (auto) 27.9 %; Mean Corpuscular Hemoglobin 31.4 pg (25-34); Mean Corpuscular Hgb Conc 34.1 g/dL (32-36); Mean Corpuscular Volume 92.2 fL (80-100); Mean Platelet Volume 9.5 fL (7.4-10.4); Monocytes # (auto) 0.57 K/uL (0.11-0.59); Monocytes % (auto) 5.3 %; Neutrophils # (auto) 7.05 K/uL (1.4-6.5); Neutrophils % (auto) 65.7 %; Platelet Count 231 K/uL (130-400); RDW Coefficient of Variation 12.8 % (11.5-14.5); RDW Standard Deviation 43.3 fL (36.4-46.3); Red Blood Count 3.98 M/uL (4.2-5.4); White Blood Count 10.73 K/uL (4.8-10.8)
[2022-01-25 06:23] LABS: Anion Gap 4 (3-11); BUN Creatinine Ratio 28.6 (10-20); Blood Urea Nitrogen 18 mg/dl (6-23); Calcium 8.5 mg/dl (8.5-10.1); Carbon Dioxide 26 mmol/L (21-32); Chloride 110 mmol/L (98-107); Creatinine Clr Calc Pharmacy 81.3 ml/min; Est GFR (African American) 103.1 ml/min; Glucose 92 mg/dl (70-99(Fasting)); Sodium 140 mmol/L (136-145)
[2022-01-25] MEDS: CLOPIDOGREL BISULFATE 75 MG TAB PO SCH (09:20)
[2022-01-25] MEDS: ASPIRIN 81 MG ECTAB PO SCH (09:20)
[2022-01-25] MEDS: FLUTICASONE/VILANTEROL 100/25MCG 14 PUFFS/INHALER INH SCH (09:20)
--- NOTE | 2022-01-25 14:58 | Hospitalist Progress Note ---
Date of Service January 25, 2022 Assessment & Plan (1) Acute CVA (cerebrovascular accident): Plan: ACUTE CVA LEFT TEMPORAL AND PARIETAL REGION (+) expressive aphasia Bran MRI: 1. Multifocal areas restricted diffusion seen within the left temporal and parietal lobes consistent with an acute MCA territory infarct. 2. A 2.7 x 1.3 cm enhancing extra-axial mass within the left middle cranial fossa consistent with a meningioma. Head and Neck CT: no stenosis noted Echo: no interatrial shunt EEG: unrevealing Tele: no a fib so far (+) significant expressive aphasia Neuro consulted ASA + Plavix for 21 days Lipitor 40mg daily OT, Speech Therapy: recommending inpatient Rehab will need ZIo patch monitoring as outpatient HYPERTENSION permissive hypertension hold Losartan, Metoprolol gentle IV flujids Known L sphenoid wing Meningoma follows [facility] had repeat MRI on 09/16/21 was stable in size Asthma no exac continue breo DVT ppx:scds/teds for now Dispo: pending PT, OT in progress plan of care discussed with patient and her daughter Radha in detail and at length all questions answered they are understanding, agreeable, comfortable with the plan of care Admission and Anticipated Discharge Date Admission Date: January 23, 2022 Subjective ff up for acute CVA et seen resting in bed, comfortable in good spirits, smiling still has expressive aphasia- but seems slightly better follows simple commands denies headache, dizziness, chest pain, dyspnea no problems with swallowing no other symptoms no other issues 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: sinus rhythm Review of Systems Review of Systems: all noted and negative except for above Physical Exam Physical Exam: General- oriented x 1-2, not in distress, speaks in sentences with no effort or accessory muscle use Eyes- anicteric Neck- no JVD Lungs- clear BS BL Heart- normal rate, regular rhythm; no murmurs Abdomen- normal bowel sounds, nondistended, soft, nontender Extremities- no pretibial edema, no calf tenderness Neuro- alert, oriented x 1-2; (+) expressive aphasia CN grossly intact motor strength 5/5 no new gross focal neurologic deficits Skin- warm & dry Results & Data Results & Data ([facility]) Vital Signs (Past 12 Hours) Vital Signs Temp Pulse Pulse Resp BP Pulse Ox 01/25/22 11:52 37.2 C 91 H 19 179/78 H 97 01/25/22 07:48 74 01/25/22 07:17 93 H 22 176/84 H 97 01/25/22 03:43 36.9 C 76 18 139/79 97 all noted and reviewed including below
[2022-01-25] MEDS: ATORVASTATIN 40 MG TAB PO SCH (20:32)
[2022-01-26] MEDS: SODIUM CHLORIDE 0.9% 1000ML 1,000 ML IV SCH (05:27)
[2022-01-26 06:44] LABS: Basophils # (auto) 0.02 K/uL (0-0.2); Basophils % (auto) 0.3 %; Eosinophils # (auto) 0.16 K/uL (0-0.5); Eosinophils % (auto) 2.1 %; Hematocrit (blood only) 38.7 % (37-47); Hemoglobin 13.1 g/dL (12.0-16.0); Immature Granulocytes # (auto) 0.01 K/uL (0.00-0.02); Immature Granulocytes % (auto) 0.1 %; Lymphocytes % (auto) 30.7 %; Mean Corpuscular Hgb Conc 33.9 g/dL (32-36); Mean Corpuscular Volume 91.5 fL (80-100); Mean Platelet Volume 9.4 fL (7.4-10.4); Monocytes # (auto) 0.49 K/uL (0.11-0.59); Monocytes % (auto) 6.5 %; Neutrophils # (auto) 4.52 K/uL (1.4-6.5); Neutrophils % (auto) 60.3 %; Platelet Count 231 K/uL (130-400); RDW Coefficient of Variation 12.6 % (11.5-14.5); RDW Standard Deviation 42.4 fL (36.4-46.3); Red Blood Count 4.23 M/uL (4.2-5.4)
[2022-01-26 07:11] LABS: Creatinine Clr Calc Pharmacy 83.9 ml/min; Est GFR (African American) 104.2 ml/min; Est GFR (Non-African American) 89.9 ml/min; Potassium 3.5 mmol/L (3.5-5.1)
[2022-01-26] MEDS: ASPIRIN 81 MG ECTAB PO SCH (08:11)
[2022-01-26] MEDS: CLOPIDOGREL BISULFATE 75 MG TAB PO SCH (08:11)
[2022-01-26] MEDS: FLUTICASONE/VILANTEROL 100/25MCG 14 PUFFS/INHALER INH SCH (08:12)
[2022-01-26] MEDS ORDERED: LOSARTAN POTASSIUM 25 MG TAB PO SCH (09:30)
--- NOTE | 2022-01-26 09:38 | Hospitalist Progress Note ---
Date of Service January 26, 2022 Assessment & Plan (1) Acute CVA (cerebrovascular accident): Plan: ACUTE CVA LEFT TEMPORAL AND PARIETAL REGION (+) significant expressive aphasia Bran MRI: 1. Multifocal areas restricted diffusion seen within the left temporal and parietal lobes consistent with an acute MCA territory infarct. 2. A 2.7 x 1.3 cm enhancing extra-axial mass within the left middle cranial fossa consistent with a meningioma. Head and Neck CT: no stenosis noted Echo: Grade 1 Diastolic Dysfunction no interatrial shunt EEG: unrevealing Tele: no a fib noted while admiteed Neuro consulted- Dr. Proctor ASA + Plavix for 21 days, then ASA Lipitor 40mg daily OT, Speech Therapy: recommending inpatient Rehab will need ZIo patch monitoring as outpatient HYPERTENSION permissive hypertension during first 2-3 days of hospitalization BP 184/76 today restart usual Losartan 25mg po daily ff up with PCP this week Known L sphenoid wing Meningoma follows [facility] had repeat MRI on 09/16/21 was stable in size Asthma no exacerbation continue Breo DVT ppx:scds/teds for now Dispo: d/c home today ff up with PCP in 1 week ff up with Dr. Proctor in 3 weeks plan of care discussed with patient and her daughter Radha in detail and at length all questions answered they are understanding, agreeable, comfortable with the plan of care Admission and Anticipated Discharge Date Admission Date: January 23, 2022 Subjective ff up for acute CVA, etc seen resting in bed, comfortable, in good spirits patient's daughter at bedside no acute events overnight speaks in sentences, aphasia seems improved today feels fine overall no headache, dizziness, palpitations, chest pain no new neuro deficits no other symptoms Review of Systems Review of Systems: all noted and negative except for above Physical Exam Physical Exam: General- oriented x 2, not in distress, speaks in sentences with no effort or accessory muscle use Eyes- anicteric Neck- no JVD Lungs- clear breath sounds bilaterally, no wheezing, no crackles Heart- normal rate, regular rhythm; no murmurs Abdomen- normal bowel sounds, nondistended, soft, nontender Extremities- no pretibial edema, no calf tenderness Neuro- alert, oriented x 2; (+) aphasia, CN grossly intact, no new gross focal neurologic deficits Skin- warm & dry Results & Data Results & Data ([facility]) Vital Signs (Past 12 Hours) Vital Signs Temp Pulse Pulse Resp BP Pulse Ox 01/26/22 07:39 36.7 C 89 19 146/91 H 98 01/26/22 03:11 36.8 C 74 16 175/79 H 97 01/25/22 22:42 36.9 C 80 18 136/63 97 01/25/22 22:20 73 all noted and reviewed including below
[2022-01-26] MEDS ORDERED: STROKE PATIENT DISCHARGE STA (11:42)
--- NOTE | 2022-01-26 11:42 | Discharge Summary ---
Date of Service January 26, 2022 Admission HPI Per Admitting Provider This is a 71-year-old female who has a significant past medical history of HTN, asthma, IBS, chronic sinusitis, left temporal meningioma followed by neurosurgery who presents to ED secondary to confusion and difficulty speaking x3 days. Patient's , father, and aunt are at bedside. Patient's history somewhat unreliable due to underlying confusion. She is unsure why she is here, but does she does know she is confused. Father at bedside notes that he noticed changes on Thursday. He felt she was more confused and, "babbling on and I did not understand what she was trying to tell me." Patient's saw her today at 4 PM and she was having difficulty speaking and confused. states she was talking to her aunt at 330 and appeared normal to her. A stroke alert was called on the patient. She otherwise had no other neurofocal deficits. She denies any extremity weakness, facial droop, slurred speech, drooling, foot drop, loss of bowel or bladder or seizure-like activity. She denies any recent illness. Today she did feel short of breath, but denies cough. She denies any recent fever, chills, sweats, lightheadedness, dizziness, syncope, chest pain, palpitations, nausea, vomiting, abdominal pain, change in her bowel or urinary habits. In ED patient was significantly hypertensive with systolic blood pressures in the 220s. She did receive IV labetalol 10 mg. Telemetry neurology was consulted and felt patient was not a TPA candidate due to possible concern for seizure versus stroke in area of meningioma as well as symptoms ongoing possibly for 3 days. There was concern for possible seizure so Tele neuro recommended 1g IV keprra. It is recommended she be admitted for further neurologic work-up. Admission Exam (Per Admitting) Constitutional Constitutional: WD/WN, vitals as above, NAD, sitting up in bed, pleasant, conversing easily, alert to self and place, but not time Head: Normocephalic, Atraumatic Eyes: PERRL, conjunctivae normal, anicteric sclerae ENMT: external ear and nose normal, oropharynx normal Neck: trachea midline, no thyromegaly normal visual inspection Respiratory: normal respiratory effort, lungs clear to auscultation, no wheeze, rales, rhonchi. Normal insp/exp effort, no accessory muscle use Cardiovascular: RRR, no murmur, no edema Vessels: no JVD or carotid bruit Chest: normal inspection of chest Abdomen: normal bowel sounds, soft, nontender, no hepatosplenomegaly Musculoskeletal: no cyanosis or clubbing, extremities motor strength 5/5 Skin: no rashes, warm and dry normal turgor Neurologic: PERRL, EOMI, accommodation nl, no face palsy, no dysarthria, + expressive aphasia. CN's II-XI intact bilaterally and moves all extremities Psychiatric: A+Ox2, euthymic affect Lymphatic: no cervical or axillary lymphadenopathy : deferred Discharge Data Consultations 01/23/22 18:41 ED Decision to Admit Stat 01/23/22 18:49 Consult Neurology Routine Procedures Performed Brain MRI WITH AND WITHOUT CONTRAST HISTORY: Confusion. Slurred speech. stroke vs seizure TECHNIQUE: Multiplanar multisequence MRI of the brain was performed both before and after the intravenous administration of contrast. COMPARISON STUDY: Head and neck CTA 01/23/2022. FINDINGS: Multifocal areas of restricted diffusion seen within the left temporal lobe and left parietal lobe consistent with an acute MCA territory infarct. The midline structures are intact. Areas of cytotoxic edema involving the left MCA territory infarct. No significant mass effect or midline shift. Patchy peripheral reticular white matter T2 hyperintensity is nonspecific but likely represents microvascular ischemic change. The major vascular flow-voids at the skull base are well-maintained. The ventricles and sulci demonstrate mild age- related involutional changes. Prior bilateral lens replacement. Paranasal sinuses and mastoid air cells are clear. Suboptimal evaluation of the postcontrast sequences due to the motion artifact. Redemonstration of the 2.7 x 1.3 cm enhancing extra-axial lesion within the left middle cranial fossa. This demonstrates a dural tail and is therefore consistent with a meningioma. IMPRESSION: 1. Multifocal areas restricted diffusion seen within the left temporal and parietal lobes consistent with an acute MCA territory infarct. 2. A 2.7 x 1.3 cm enhancing extra-axial mass within the left middle cranial fossa consistent with a meningioma. ACT 112: Negative or not required by law. Electronically signed by: Archie Hernandez M.D. 01/24/2022 8:[address] angio neck with con, CT angio head w con, CT head/brain wo con CLINICAL HISTORY: Stroke Like Symptoms TECHNIQUE: Contiguous axial CT images of the head were acquired from the base of the skull to the vertex without intravenous contrast administration. CT angiography of the head and neck was performed following intravenous administration of iodinated contrast. Coronal and sagittal MIPS were obtained from the axial data set and were submitted for review. Automated dose lowering techniques and/or adjustment according to patient size were utilized for this examination. All measurements were calculated based on NASCET criteria. Comparison: Comparison is made to CT head 07/21/2016 FINDINGS: CT head: There is an ill-defined hypodensity in the left sylvian sulcus. There also ill-defined hypodensities in the left posterior watershed region. Periventricular hypodensities are unchanged from 2016 and likely reflect age- related changes. Focal hypodensities are also seen in the right supraventricular white matter. Small thyroid nodules are seen which do not require follow-up by ACR criteria. CTA Neck: A 3 vessel aortic arch is shown. There is no significant atherosclerotic plaque in the aortic arch or the origins of the innominate, left common carotid, and left subclavian arteries. The common carotid, external carotid, cervical segments of the internal carotid arteries, and the cervical segments of the vertebral arteries are patent without hemodynamically significant stenosis. Tortuosity of the left internal carotid artery. The left vertebral artery is dominant. CTA Head: The anterior and posterior cerebral circulations are patent. No hemodynamically significant stenosis, aneurysm, dissection, or arteriovenous malformation is shown. origin of the right DOSIMETRIST seen. There is a 12 x 27 x 27 mm hyperdense mass in the right temporal fossa with dural tail noted IMPRESSION: 1. There is a hypodensity in the left temporal region and posterior watershed concerning for infarct. There is an enhancing mass in the left temporal fossa with dural tail compatible with meningioma. 2. No occlusion, hemodynamically significant stenosis, aneurysm, dissection, or arteriovenous malformation in the major intracranial arteries. 3. No occlusion, hemodynamically significant stenosis, or dissection in the major cervical arteries. Assessment of stenosis of the internal carotid arteries is based on NASCET criteria. ACT 112: Negative or not required by law. Electronically signed by: Paulie Barnes M.D. Hospital Course (1) Acute CVA (cerebrovascular accident): ACUTE CVA LEFT TEMPORAL AND PARIETAL REGION (+) significant expressive aphasia Bran MRI: 1. Multifocal areas restricted diffusion seen within the left temporal and parietal lobes consistent with an acute MCA territory infarct. 2. A 2.7 x 1.3 cm enhancing extra-axial mass within the left middle cranial fossa consistent with a meningioma. Head and Neck CT: no stenosis noted Echo: Grade 1 Diastolic Dysfunction no interatrial shunt EEG: unrevealing Telemetry: no a fib noted while admiteed Neuro consulted- Dr. Proctor ASA + Plavix for 21 days, then ASA only daily Lipitor 40mg daily OT, Speech Therapy: recommending inpatient Rehab- patient's family prefers outpatient therapy will need Zio patch monitoring as outpatient to rule out underlying Atrial Fib rillation HYPERTENSION permissive hypertension during first 2-3 days of hospitalization on hospital day 4, restarted usual Losartan 25mg po daily for BP 184/76 improved to 151/79 resume usual Losartan 25mg po daily reduce usual Metoprolol to 25mg daily ff up with PCP this week Known L sphenoid wing Meningoma follows [facility] had repeat MRI on 09/16/21 was stable in size Asthma no exacerbation continue Breo DVT ppx:scds/teds for now Dispo: d/c home today ff up with PCP in 1 week ff up with Dr. Proctor in 3 weeks plan of care discussed with patient and her daughter Radha in detail and at length all questions answered they are understanding, agreeable, comfortable with the plan of care
--- NOTE | 2022-01-26 12:21 | Pharmacy Report ---
Pharmacist Stroke Counseling - Date of Service January 26, 2022 - Scope: Pharmacy has been consulted to provide medication discharge counseling for this patient admitted with [ischemic stroke] [hemorrhagic stroke] [transient ischemic attack] as per the Pharmacist Discharge Counseling for Stroke Patients Blair vickers - Medications on Discharge: Home Medications Medication Instructions Recorded Confirmed cholecalciferol (vitamin D3) 25 1,000 unit PO DAILY #90 cap 07/05/19 01/23/22 mcg (1,000 unit) capsule alendronate 70 mg tablet 70 mg PO WK tab 12/13/20 01/23/22 losartan 25 mg tablet 25 mg PO DAILY 01/23/22 01/23/22 lubiprostone 8 mcg capsule 8 mcg PO BID 01/23/22 01/23/22 (Amitiza) New Rx's Medication Instructions Recorded fluticasone furoate 100 1 inh INHALATION DAILY #60 ea 07/02/21 mcg-vilanterol 25 mcg/dose inhalation powder (Breo Ellipta) aspirin 81 mg tablet,delayed 81 mg PO QAM #30 tab 01/26/22 release atorvastatin 40 mg tablet 40 mg PO HS #30 tab 01/26/22 clopidogrel 75 mg tablet 75 mg PO QAM 20 Days #20 tab 01/26/22 metoprolol succinate 25 mg 25 mg PO DAILY #30 tab 01/26/22 tablet,extended release 24 hr - Action: The above medications, specifically ones for stroke treatment/prophylaxis, have been reviewed in detail with the patient policy services representative (daughter) prior to discharge. This includes indication, common adverse reactions, drug interactions, and medication administration. Medication counseling has been employed using the teach-back method to ensure understanding. - Outcome: The patient policy services representative(daughter) have demonstrated understanding of the medications. Additional comments: -spoke with patient's daughter who is a nurse via telephone. -no questions Thank you for allowing pharmacy to be involved in the care of this patient. Please call [phone] with any additional questions
--- NOTE | 2022-01-31 13:13 | Coding Query ---
To promote full compliance with coding requirements relating to patient care, provider participation is requested in all cases of veterinary technician uncertainty. Please assist us with the question(s) below: Coding Question(s): The diagnosis(es) below was documented in the H&P then subsequently fell off all further documentation. Please indicate if it is still a possible diagnosis or ruled out. Physician's Response(s): HYPERTENSIVE EMERGENCY ( ) Diagnosed and POA ( ) Diagnosed and not POA ( x ) Ruled out ( ) Other (please specify) Thank you for your assistance, Lurdes Lloyd - Mold Closer Helper FAB[facility]
== END 2022-01-26 13:13 | disposition home health service (06) | DRG 66 ==
LOC: ED 16:57 → 2E 18:49 → SUATTDRO 18:49 → 2E 21:19